=== PATIENT | male | born 2000 | race African-American/Black ===

== ENCOUNTER 2024-05-13 18:00 | Emergency (ER) | payer OTHER ==
[2024-05-13] MEDS ORDERED: HYDROCODONE/APAP 5/325 MG TAB ONE (18:28)
[2024-05-13] MEDS ORDERED: TDAP (DIPHTH,PERTUSS(ACELL),TET VAC) 0.5 ML VIAL IMVAC ONE (18:28)
[2024-05-13] MEDS ORDERED: IBUPROFEN 400 MG TAB ONE (18:28)
[2024-05-13] MEDS ORDERED: ACETAMINOPHEN 325 MG TABLET ONE (18:28)
[2024-05-13] MEDS ORDERED: DOXYCYCLINE 100 MG CAP PO ONE (18:42)
--- NOTE | 2024-05-13 18:55 | RAD REPORT ---
EXAMINATION: XR Foot Left 3 View CLINICAL INDICATION: Male, 24 years old. [facility] MAIN laceration Bed Name: 5 TECHNIQUE: 3 view radiographs of the left foot were obtained. COMPARISON: No prior exam. FINDINGS: No evidence of fracture or dislocation. Normal alignment. No evidence of arthropathy or oth er focal bone lesion. Soft tissues show mild swelling and irregularity along the sole of the forefoot and midfoot . No significant degenerative changes. IMPRESSION: No acute or significant osseous abnormalities. Plantar soft tissue tissue swelling as above.
--- NOTE | 2024-05-13 19:18 | EDPHYS ---
Physician Documentation [facility] Name: Bj Moreno Age: 24 yrs Sex: Male : 2000 Arrival Date: 05/13/2024 Time: 18:00 Bed 5 Private MD: Tianna Martinez ED Physician Bulmaro Fuller HPI: 05/13 18:25 This 24 yrs old Black Male presents to ER via Wheelchair with complaints of Laceration cp To Foot. 18:25 The patient has a laceration The injury was stepped on oyster reef. The laceration(s) cp is(are) located on the plantar surface of left foot. Onset: The symptoms/episode began/occurred last night. Associated signs and symptoms: The patient has no apparent associated signs or symptoms. Historical: - Allergies: 18:15 No Known Allergies; iw - Home Meds: 18:15 None [Active]; iw - PMHx: 18:15 None; iw - PSHx: 18:15 right arm; iw - Immunization history:: Adult Immunizations not up to date. - Infectious Disease History:: Denies. - Social history:: Smoking status: Patient reports the use of cigarette tobacco products, Reported history of juuling and/or vaping. ROS: 18:26 MS/extremity: Positive for laceration, pain, of the left foot, cp 18:26 Constitutional: Negative for body aches, chills, fever, poor PO intake, cp 18:26 Respiratory: Negative for cough, shortness of breath, wheezing, 18:26 Abdomen/GI: Negative for abdominal pain, vomiting, diarrhea, constipation, 18:26 Back: Negative for pain at rest, pain with movement, 18:26 All other systems are negative, Exam: 18:30 Constitutional: The patient appears in no acute distress, alert, awake, non-toxic, well cp developed, well nourished, uncomfortable, 18:30 Head/Face: Normocephalic, atraumatic. cp 18:30 Chest/axilla: Inspection: normal, cp 18:30 Cardiovascular: Rate: tachycardic, 18:30 Respiratory: the patient does not display signs of respiratory distress, Respirations: normal, 18:30 Abdomen/GI: Exam negative for discomfort, distension, guarding, Inspection: abdomen appears normal, 18:30 Musculoskeletal/extremity: Extremities: noted in the left foot: multiple lacerations cp noted, tender to palpation, mild swelling, erythema noted, no active bleeding and no drainage expressed, Vital Signs: 18:12 BP 103 / 85; Pulse 101; Resp 18; Temp 99.7; Pulse Ox 97% ; Weight 83.91 kg; Height 6 iw ft. 0 in. ; Pain 10/10; 18:12 Body Mass Index 25.09 (83.91 kg, 182.88 cm) iw 18:12 Pain Scale: Adult iw MDM: 18:16 Medical Screening Exam initiated cp 19:17 Data reviewed: vital signs, nurses notes, radiologic studies, plain films. cp 19:17 Differential diagnosis: superficial laceration, foreign body, open fracture, cp cellulitis. I considered the following discharge prescriptions or medication management in the emergency department Medications were administered in the Emergency Department. See MAR. Independent interpretation of the following test(s) in the Emergency Department X-Ray: My interpretation is images of left foot negative for foreign body and negative for fracture. Counseling: I had a detailed discussion with the patient and/or guardian regarding the historical points, exam findings, and any diagnostic results supporting the discharge/admit diagnosis, radiology results, the need for outpatient follow up, a family practitioner, to return to the emergency department if symptoms worsen or persist or if there are any questions or concerns that arise at home. Response to treatment: the patient's symptoms have mildly improved after treatment, and as a result, I will discharge patient. Special discussion: I discussed in detail with the patient the higher chance of wound infection based on his presenting history. 05/13 18:19 Order name: XRAY Foot LEFT 3 View cp 05/13 19:08 Order name: Wound dressing: please clean and dress wound; Complete Time: 19:49 cp 05/13 19:08 Order name: Crutches; Complete Time: 19:49 cp Administered Medications: 18:36 Drug: Ibuprofen PO 800 mg PO once Route: PO; ko1 20:02 Follow up: Response: No adverse reaction; Pain is decreased cp4 18:36 Drug: Acetaminophen PO 650 mg PO once Route: PO; ko1 20:02 Follow up: Response: No adverse reaction; Pain is decreased cp4 18:36 Drug: HYDROcodone-acetaminophen PO 5 mg-325 mg 1 tabs PO once Route: PO; ko1 20:02 Follow up: Response: No adverse reaction; Pain is decreased cp4 18:36 Drug: Boostrix Tdap IM 0.5 ml IM once; as a single dose Route: IM; Site: left deltoid; ko1 20:02 Follow up: Response: No adverse reaction cp4 20:02 Follow up: Response: No adverse reaction cp4 18:43 Drug: Doxycycline PO 100 mg PO once Route: PO; ko1 20:02 Follow up: Response: No adverse reaction cp4 19:49 Drug: Ciprofloxacin PO 500 mg PO once Route: PO; cp4 20:02 Follow up: Response: No adverse reaction cp4 Disposition: 05/14 18:30 Chart complete. cp Disposition Summary: 05/13/24 19:18 Discharge Ordered Notes: Location: Home cp Problem: new cp Symptoms: have improved cp Condition: Stable cp Diagnosis - Laceration without foreign body of foot - left cp - Cellulitis of left lower limb - left foot cp Followup: cp - With: Private Physician - When: 48 Hours - Reason: Wound Recheck Discharge Instructions: - Discharge Summary Sheet cp - Cellulitis, Adult cp - Nonsutured Laceration Care cp Forms: - Medication Reconciliation Form cp - Antibiotic Education cp - Prescription Opioid Use cp - Patient Portal Instructions cp - Leadership Thank You Letter cp Prescriptions: - Cipro 500 mg Oral Tablet - take 1 tablet ORAL route every 12 hours for 10 days; 20 tablet; Refills: 0, cp Product Selection Permitted - Ibuprofen 800 mg Oral Tablet - take 1 tablet ORAL route every 8 hours As needed take with food; 30 tablet; cp Refills: 0, Product Selection Permitted - Doxycycline Hyclate 100 mg Oral Tablet - take 1 tablet ORAL route every 12 hours; 20 tablet; Refills: 0, Product cp Selection Permitted Addendum: 05/16/2024 21:39 I was immediately available for consultation during this patient's visit. I did not e c2 personally see the patient or discuss the patient with the DENZEL. . Signatures: Dispatcher [employer] Addie Toledo RN RN iw Page, Corey, PA PA cp Oliver, Kathy, RN RN ko1 Bulmaro Fuller MD MD ec2 Elo Mendoza cp4
--- NOTE | 2024-05-13 19:18 | ER ---
Nurse's Notes [facility] Name: Bj Moreno Age: 24 yrs Sex: Male : 2000 Arrival Date: 05/13/2024 Time: 18:00 Bed 5 Private MD: Tianna Martinez Diagnosis: Laceration without foreign body of foot-left;Cellulitis of left lower limb-left foot Presentation: 05/13 18:12 Chief complaint: Patient states: cut bottom of left foot on some oyster reef last night iw , today there is redness and streaking up his foot and he felt like he had fever today. Coronavirus screen: At this time, the client does not indicate any symptoms associated with coronavirus-19. Ebola Screen: No symptoms or risks identified at this time. Initial Sepsis Screen: Does the patient meet any 2 criteria? No. Patient's initial sepsis screen is negative. Does the patient have a suspected source of infection? No. Patient's initial sepsis screen is negative. Risk Assessment: Do you want to hurt yourself or someone else? Patient reports no desire to harm self or others. Onset of symptoms was May 12, 2024. 18:12 Method Of Arrival: Wheelchair iw 18:12 Acuity: ABAD 3 iw 19:59 Complicating Factors: stepped on oyster shells. cp4 Triage Assessment: 19:59 General: Appears in no apparent distress. uncomfortable. Injury Description: Laceration cp4 sustained to left foot. Historical: - Allergies: 18:15 No Known Allergies; iw - Home Meds: 18:15 None [Active]; iw - PMHx: 18:15 None; iw - PSHx: 18:15 right arm; iw - Immunization history:: Adult Immunizations not up to date. - Infectious Disease History:: Denies. - Social history:: Smoking status: Patient reports the use of cigarette tobacco products, Reported history of juuling and/or vaping. Screenin:50 [facility] ED Fall Risk Assessment (Adult) History of falling in the last 3 months, cp4 including since admission No falls in past 3 months (0 pts) Confusion or Disorientation No (0 pts) Intoxicated or Sedated No (0 pts) Impaired Gait No (0 pts) Mobility Assist Device Used No (0 pt) Altered Elimination No (0 pt) Score/Fall Risk Level 0 - 2 = Low Risk Oriented to surroundings, Maintained a safe environment, Assessed \T\ reinforced patient's understanding of fall precautions, Hourly rounding (assess needs \T\ fall precautionary measures) done. Abuse screen: Denies threats or abuse. Nutritional screening: No deficits noted. Tuberculosis screening: No symptoms or risk factors identified. Assessment: 19:50 General: Appears in no apparent distress. uncomfortable, Behavior is calm, cooperative, cp4 appropriate for age. Pain: Complains of pain in left foot Pain currently is 5 out of 10 on a pain scale. Neuro: Level of Consciousness is awake, alert, obeys commands. Cardiovascular: Patient's skin is warm and dry. Respiratory: Airway is patent Respiratory effort is. GI: No signs and/or symptoms were reported involving the gastrointestinal system. : No signs and/or symptoms were reported regarding the genitourinary system. EENT: No signs and/or symptoms were reported regarding the EENT system. Derm: No signs and/or symptoms reported regarding the dermatologic system. Musculoskeletal: No signs and/or symptoms reported regarding the musculoskeletal system. 20:01 Injury Description: Laceration is contaminated, 0.5 to 2.5 cm long, not bleeding, was cp4 sustained 4-6 hours ago. is bleeding no active bleeding noted. Vital Signs: 18:12 BP 103 / 85; Pulse 101; Resp 18; Temp 99.7; Pulse Ox 97% ; Weight 83.91 kg; Height 6 iw ft. 0 in. ; Pain 10/10; 18:12 Body Mass Index 25.09 (83.91 kg, 182.88 cm) iw 18:12 Pain Scale: Adult iw ED Course: 18:01 Patient arrived in ED. as 18:03 Perry Contreras PA is PHCP. cp 18:03 Bulmaro Fuller MD is Attending Physician. cp 18:05 Tianna Martinez is Private Physician. as 18:15 Triage completed. iw 18:15 Arm band placed on. iw 18:35 Alva Ziegler, PANDA is Primary Nurse. ko1 18:51 XRAY Foot LEFT 3 View In Process Unspecified. EDMS 19:50 Bed in low position. Call light in reach. Side rails up X 1. Provided Education on: cp4 foot laceration. 19:50 No provider procedures requiring assistance completed. Patient did not have IV access cp4 during this emergency room visit. Administered Medications: 18:36 Drug: Ibuprofen PO 800 mg PO once Route: PO; ko1 20:02 Follow up: Response: No adverse reaction; Pain is decreased cp4 18:36 Drug: Acetaminophen PO 650 mg PO once Route: PO; ko1 20:02 Follow up: Response: No adverse reaction; Pain is decreased cp4 18:36 Drug: HYDROcodone-acetaminophen PO 5 mg-325 mg 1 tabs PO once Route: PO; ko1 20:02 Follow up: Response: No adverse reaction; Pain is decreased cp4 18:36 Drug: Boostrix Tdap IM 0.5 ml IM once; as a single dose Route: IM; Site: left deltoid; ko1 20:02 Follow up: Response: No adverse reaction cp4 20:02 Follow up: Response: No adverse reaction cp4 18:43 Drug: Doxycycline PO 100 mg PO once Route: PO; ko1 20:02 Follow up: Response: No adverse reaction cp4 19:49 Drug: Ciprofloxacin PO 500 mg PO once Route: PO; cp4 20:02 Follow up: Response: No adverse reaction cp4 Medication: 19:50 VIS not applicable for this client. cp4 Outcome: 19:18 Discharge ordered by MD. cp 19:50 Discharged to home with crutches, cp4 19:50 Condition: stable 19:50 Discharge instructions given to patient, family, Instructed on discharge instructions, follow up and referral plans. medication usage, crutch walking, Demonstrated understanding of instructions, follow-up care, medications, crutch walking, Prescriptions given X 3, 20:03 Patient left the ED. cp4 Signatures: Dispatcher [employer] Kelly Hudson Irene, RN RN Perry Mane PA PA cp Oliver, Kathy RN RN Elo Nunez cp4
[2024-05-13] MEDS ORDERED: CIPROFLOXACIN HCL 500 MG TAB ONE (19:42)
[2024-05-13 20:24] VITALS: BP 103/85; TEMP 99.7; O2SAT 97
== END 2024-05-13 20:03 | disposition home or self-care (01) ==
LOC: ER 18:00
DX: S91.312A Laceration without foreign body, left foot, initial encounter (principal); L03.116 Cellulitis of left lower limb; W26.8XXA Contact with other sharp object(s), not elsewhere classified, initial encounter; Y93.89 Activity, other specified; Y92.832 Beach as the place of occurrence of the external cause; Z23 Encounter for immunization; F17.210 Nicotine dependence, cigarettes, uncomplicated
CPT/HCPCS: 96372; 99284